=== PATIENT | female | born 1985 | race African-American/Black ===

== ENCOUNTER 2022-08-09 02:58 | Emergency (ER) | payer MEDICAID ==
[~2022-08-09] VITALS: Ht 172.7 cm; Wt 81.6 kg
--- NOTE | 2022-08-09 03:35 | NUR ---
[id number] & [employer]. DANGER TO SELF - BANGING HER HEAD ON HARD SURFACE ON 5150 HOLD BY ALETHA. PT IS NOT COOPERATIVE & NOT ANSWERING QUESTION
[2022-08-09] MEDS ORDERED: HALOPERIDOL LACTATE INJ 5 MG/ML VIAL ONE (03:46)
[2022-08-09] MEDS ORDERED: diphenhydrAMINE HCL 50 MG/ML VIAL ONE (03:46)
[2022-08-09] MEDS ORDERED: LORAZEPAM INJ 2 MG/ML VIAL ONE (03:47)
[2022-08-09] MEDS ORDERED: HALOPERIDOL LACTATE INJ 5 MG/ML VIAL IM ONE (04:00)
[2022-08-09] MEDS ORDERED: LORAZEPAM INJ 2 MG/ML VIAL IM ONE (04:00)
[2022-08-09] MEDS ORDERED: diphenhydrAMINE HCL 50 MG/ML VIAL IM ONE (04:00)
--- NOTE | 2022-08-09 05:20 | NUR ---
BLOOD COLLECTED AND SENT TO LAB
--- NOTE | 2022-08-09 05:24 | NUR ---
PT TAKEN TO CT
[2022-08-09 05:36] LABS: BASOPHILS % (AUTO) 0.4 % (0.0-2.0); EOSINOPHILS % (AUTO) 0.6 % (0.0-6.0); HEMATOCRIT 41 % (33-45); HEMOGLOBIN 13.1 g/dL (11.5-14.8); LYMPHOCYTES # (AUTO) 2.3 K/uL (0.8-4.8); LYMPHOCYTES % (AUTO) 31.3 % (20.0-44.0); MEAN CORPUSCULAR HGB CONC 32 g/dl (31.0-36.0); MEAN CORPUSCULAR VOLUME 88 fL (82-100); MONOCYTES # (AUTO) 0.4 K/uL (0.1-1.30); MONOCYTES % (AUTO) 6.1 % (2.0-12.0); NEUTROPHILS # (AUTO) 4.5 K/uL (1.8-8.9); NEUTROPHILS % (AUTO) 61.6 % (43.0-81.0); PLATELET COUNT (AUTO) 290 K/uL (150-450); RED BLOOD CELL COUNT(AUTO) 4.59 MIL/uL (4.0-5.2); WHITE BLOOD COUNT (AUTO) 7.3 K/uL (4.3-11.0)
[2022-08-09 05:42] LABS: CARBON DIOXIDE 29 mmol/L (21-32); CHLORIDE 103 mmol/L (98-107); GLUCOSE 119 mg/dL (74-106); POTASSIUM 3.7 mmol/L (3.5-5.1); SODIUM SERUM 138 mmol/L (136-145); UREA NITROGEN, BLOOD 11 mg/dL (7-18)
[2022-08-09 05:47] LABS: ALANINE AMINOTRANSFERASE 24 U/L (12-78); ALBUMIN 3.5 g/dL (3.4-5.0); ALKALINE PHOSPHATASE 57 U/L (46-116); ASPARTATE AMINOTRANSFERASE 19 U/L (15-37); BILIRUBIN,DIRECT 0.1 mg/dL (0.0-0.2); BILIRUBIN,TOTAL 0.5 mg/dL (0.2-1.0)
[2022-08-09 05:49] LABS: ACETAMINOPHEN < 10 ug/ml (10-30); ALCOHOL, BLOOD < 3 mg/dL (0-0)
--- NOTE | 2022-08-09 06:09 | NUR ---
PT UNCOOPERATIVE WHEN OBTAINING URINE SAMPLE. PT REFUSING TO BE STRAIGHT CATH'ED AND TELL US "JUST WAIT I CAN GIVE YOU GUYS URINE." OFFERED PATIENT BED LIZARRAGA, BUT PATIENT URINATED ON THE BED AND NOT THE BED LIZARRAGA. URINE SAMPLE NOT OBTAINED.
--- NOTE | 2022-08-09 12:03 | NUR ---
PATIENT ALERT, AWAKE AND COORPERATIVE , WALKING HERSELF TO RESTROOM ON STEADY GAIT. VITAL SIGNS ARE STABLE. NO SIGNS AND SYMPTOMS OF DISTRESS.
--- NOTE | 2022-08-09 12:05 | NUR ---
URINE SAMPLE OBTAINED
[2022-08-09 12:15] LABS: BILIRUBIN,URINE Negative (NEGATIVE); COLOR,URINE YELLOW (YELLOW); LEUKOCYTE ESTERASE ,URINE Negative (NEGATIVE); NITRITE, URINE Negative (NEGATIVE); PROTEIN,URINE Negative (NEGATIVE); UGLUCOSE Negative (NEGATIVE); UROBILINOGEN,URINE 0.2 EU/dL (0.2)
--- NOTE | 2022-08-09 12:25 | NUR ---
IV removed. Catheter intact and site benign. Pressure and 4x4 applied to site. No bleeding noted.Patient discharged to home in stable condition. Written and verbal after care instructions given. Patient verbalizes understanding of instruction.
[2022-08-09 12:26] VITALS: BP 135/61
--- NOTE | 2022-08-09 12:27 | NUR ---
5150 HOLD WAS BROKEN BY PSYCH TEAM. PATIENT DISCHARGED IN STABLE CONDITION.
[2022-08-09 13:16] LABS: BACTERIA,URINE Moderate /HPF (None Seen); SQUAMOUS EPITHELIAL CELL,UR Moderate /HPF (None Seen); WBC,URINE 0-2 /HPF (0-3)
== END 2022-08-09 12:26 | disposition home or self-care (01) ==
LOC: ER 02:59
DX: S09.8XXA Other specified injuries of head, initial encounter (principal); R46.1 Bizarre personal appearance; Z20.822 Contact with and (suspected) exposure to COVID-19; X58.XXXA Exposure to other specified factors, initial encounter; Y93.89 Activity, other specified; Y92.89 Other specified places as the place of occurrence of the external cause; Y99.8 Other external cause status
CPT/HCPCS: 99285; 96372 ×2; 70450; 85025; 80048; 87086; 80076; 81001; 36415; 84702; 87426; 80143; 80320; 80307; J2060; J1200; J1630; C9803; G0480